=== PATIENT | male | born 1995 | race Two or more races ===

== ENCOUNTER 2025-06-15 12:05 | Emergency (ER) | payer BC ==
[~2025-06-15] VITALS: Ht 182.9 cm; Wt 99.8 kg
[2025-06-15 14:29] VITALS: BP 129/81; TEMP 97.9; O2SAT 97
== END 2025-06-15 14:34 | disposition home or self-care (01) ==
LOC: M ED 12:05
DX: S43.51XA Sprain of right acromioclavicular joint, initial encounter (principal); W01.198A Fall on same level from slipping, tripping and stumbling with subsequent striking against other object, initial encounter; G40.909 Epilepsy, unspecified, not intractable, without status epilepticus; Y92.830 Public park as the place of occurrence of the external cause; Y93.62 Activity, american flag or touch football; Y99.9 Unspecified external cause status